=== PATIENT | female | born 1995 | race Caucasian/White ===

== ENCOUNTER → 2016-10-01 | Outpatient (CLI) | payer OTHER ==
[~2016-10-01] MED LIST: ASPI81TA85 PO; FIOR1CAP PO; PRENTAB55 PO; SING10TA32 PO
== END ==
LOC: M SMT 11:23
PROVIDERS: ATTEND Obstetrics & Gynecology
DX: Z34.82 Encounter for supervision of other normal pregnancy, second trimester (principal)

== ENCOUNTER → 2016-11-28 | Outpatient (CLI) | payer OTHER ==
[~2016-11-28] MED LIST changes: +COLA100C5 PO; +IBUP80TA PO; +OXYC1TAB23 PO
[2016-11-28 14:05] LABS: MEAN CORPUSCULAR HEMOGLOBIN 30.1 pg (27.0-33.0); MEAN CORPUSCULAR HGB CONC 33.8 g/dl (32.0-36.5); MEAN CORPUSCULAR VOLUME 88.9 fl (80.0-96.0); RED CELL DISTRIBUTION WIDTH 14.6 % (11.5-14.5); WHITE BLOOD COUNT 9.9 K/mm3 (4.0-10.0)
== END ==
LOC: M SMT 09:59
PROVIDERS: ATTEND Obstetrics & Gynecology
DX: Z34.82 Encounter for supervision of other normal pregnancy, second trimester (principal)

== ENCOUNTER 2016-12-08 13:09 | Outpatient (CLI) | payer OTHER ==
[2016-12-08 13:24] VITALS: BP 143/88
[2016-12-08 15:07] LABS: MEAN CORPUSCULAR HGB CONC 34.2 g/dl (32.0-36.5); MEAN CORPUSCULAR VOLUME 87.8 fl (80.0-96.0); WHITE BLOOD COUNT 12.4 K/mm3 (4.0-10.0)
[2016-12-08 15:22] LABS: ALBUMIN 2.8 GM/DL (3.2-5.2); ALBUMIN/GLOBULIN RATIO 0.76 (1.00-1.93); ALKALINE PHOSPHATASE 78 U/L (45-117); ALT/SGPT 12 U/L (12-78); ANION GAP 10 MEQ/L (8-16); AST/SGOT 9 U/L (15-37); BILIRUBIN,TOTAL 0.3 MG/DL (0.2-1.0); BLOOD UREA NITROGEN 8 MG/DL (7-18); CALCIUM LEVEL 8.7 MG/DL (8.5-10.1); CARBON DIOXIDE LEVEL 23 MEQ/L (21-32); CHLORIDE LEVEL 107 MEQ/L (98-107); CREATININE FOR GFR 0.61 MG/DL (0.55-1.02); GLOMERULAR FILTRATION RATE > 60.0 (>60); GLUCOSE, FASTING 83 MG/DL (70-105); POTASSIUM SERUM 3.6 MEQ/L (3.5-5.1); SODIUM LEVEL 140 MEQ/L (136-145); TOTAL PROTEIN 6.5 GM/DL (6.4-8.2); URIC ACID 6.3 MG/DL (2.6-6.0)
[2016-12-08] MEDS ORDERED: FIORICET TAB PO PRN (18:00)
[2017-02-02] MEDS ORDERED: ASPI81TA85 PO (07:44)
[2017-02-02] MEDS ORDERED: PRENTAB55 PO (07:44)
[2017-02-02] MEDS ORDERED: SING10TA32 PO (07:44)
[2017-02-02] MEDS ORDERED: FIOR1CAP PO (07:44)
== END 2016-12-08 22:08 | disposition home or self-care (01) ==
LOC: M LDO 13:09
PROVIDERS: ATTEND Obstetrics & Gynecology
DX: O99.89 Other specified diseases and conditions complicating pregnancy, childbirth and the puerperium (principal); Z3A.28 28 weeks gestation of pregnancy; R03.0 Elevated blood-pressure reading, without diagnosis of hypertension; R51 Headache; Z88.8 Allergy status to other drugs, medicaments and biological substances

== ENCOUNTER → 2016-12-18 | Outpatient (CLI) | payer OTHER ==
--- NOTE | 2016-12-18 17:18 | REP ---
OB ULTRASOUND: Real-time sonographic evaluation of the gravid uterus is performed. There is a single living intrauterine gestation. The estimated gestational age is reportedly 29 weeks 4 days, EDC 03/01/2017. Today's measurements indicate appropriate growth. BPD 75 mm = 29 weeks 6 days, 56th percentile HC 278 mm = 30 weeks 3 days, 62nd percentile AC 251 mm = 29 weeks 2 days, 45th percentile FL 57 mm = 29 weeks 5 days, 52nd percentile HC/AC ratio 1.1, within normal range. Estimated weight 1420 grams, 42nd percentile. Cervix closed and measures 3.3 cm in length. heart rate 158 beats per minute. Amniotic fluid within normal limits, WEN 18.6, within normal range of 9.1 to 23.3. S/D ratio 3.03, within normal range. RI 0.67, within normal range. SEEN/GROSSLY UNREMARKABLE Lateral ventricles yes Posterior fossa yes Upper lip yes Four-chamber heart no LVOT no RVOT no Stomach yes Cord insertion yes Three vessel cord yes Kidneys no Bladder yes Spine no position: Vertex. Placenta: Anterior and grade 1 with no previa or abruption. Cervix: Closed and measures 3.3 cm in length. Signed by Jarad Tucker MD 12/18/2016 05:45 P
== END ==
LOC: M RAD 11:55
PROVIDERS: ATTEND Obstetrics & Gynecology
DX: Z36 Encounter for antenatal screening of mother (principal)

== ENCOUNTER → 2016-12-25 | Outpatient (CLI) | payer OTHER ==
[2016-12-25 17:20] LABS: ALT/SGPT 16 U/L (12-78); AST/SGOT 14 U/L (15-37); BILIRUBIN,TOTAL 0.1 MG/DL (0.2-1.0); CREATININE FOR GFR 0.53 MG/DL (0.55-1.02); GLOMERULAR FILTRATION RATE > 60.0 (>60); URIC ACID 6.1 MG/DL (2.6-6.0)
[2016-12-25 18:04] LABS: MEAN CORPUSCULAR HEMOGLOBIN 29.1 pg (27.0-33.0); MEAN CORPUSCULAR HGB CONC 32.5 g/dl (32.0-36.5); MEAN CORPUSCULAR VOLUME 89.4 fl (80.0-96.0); RED CELL DISTRIBUTION WIDTH 14.8 % (11.5-14.5); WHITE BLOOD COUNT 11.3 10^3/uL (4.0-10.0)
== END ==
LOC: M SMT 12:06
PROVIDERS: ATTEND Obstetrics & Gynecology
DX: O13.3 Gestational [pregnancy-induced] hypertension without significant proteinuria, third trimester (principal)

== ENCOUNTER → 2016-12-25 | Outpatient (REF) | payer OTHER | LOC: M LAB REF 12:43 | PROVIDERS: ATTEND Obstetrics & Gynecology | DX: O13.3 Gestational [pregnancy-induced] hypertension without significant proteinuria, third trimester (principal) ==

== ENCOUNTER → 2017-01-08 | Outpatient (CLI) | payer OTHER ==
--- NOTE | 2017-01-09 09:11 | REP ---
Third trimester obstetric ultrasound for gestational hypertension without proteinuria: There is a single intrauterine gestation in a vertex presentation. There is movement and cardiac activity. The heart rate is 152 beats per minute. The placenta is anterior. There is no placenta previa or abruptio. The placenta is grade 1. The amniotic fluid volume subjectively is normal. The amniotic fluid index is 12.6 (8.4 - 24.4). The maternal adnexa and cul-de-sac are unremarkable. Based on the ultrasound today the gestational age is 32 weeks 2 days with an ROBERT of 03/03/2017. Gestational age by the first ultrasound 32 weeks 6 days with an ROBERT of 02/27/2017. By LMP 32 weeks 4 days with an ROBERT of 03/01/2017. weight is 1954 grams. (4 pounds, 5 ounces). This is the 40th percentile for 32 weeks 4 days. Umbilical artery Doppler assessment: SD ratio 3.08 (3.12 - 4.28) Resistive index 0.68 present 0.63 - 0.79). Diastolic flow velocity 13.1 cm/sec (normal greater than 10 cm/sec). anatomic survey: The following anatomic structures are identified and are unremarkable: Intracranial lateral ventricles, cerebellum, cisterna magna, facial profile, upper lip, choroid plexus, lungs, four-chamber heart, right cardiac ventricular outflow tract, diaphragm, stomach, cord insertion, three-vessel cord, kidneys, bladder, spine and upper lower extremities. Suboptimally demonstrated is the cardiac right ventricular outflow tract. Otherwise, there are no anomalies. Signed by Jarad Delgado MD 01/09/2017 09:02 A
== END ==
LOC: M RAD 12:44
PROVIDERS: ATTEND Obstetrics & Gynecology
DX: O13.3 Gestational [pregnancy-induced] hypertension without significant proteinuria, third trimester (principal); Z3A.32 32 weeks gestation of pregnancy

== ENCOUNTER → 2017-02-04 | Outpatient (REF) | payer OTHER | LOC: M LAB REF 17:05 | PROVIDERS: ATTEND Obstetrics & Gynecology | DX: O13.3 Gestational [pregnancy-induced] hypertension without significant proteinuria, third trimester (principal) ==

== ENCOUNTER 2017-02-09 05:11 | Inpatient (IN) | payer OTHER ==
[~2017-02-09] VITALS: Ht 167.6 cm; Wt 88.0 kg
[2017-02-09] VITALS (8 sets, daily range): BP systolic 110–140; BP diastolic 58–81
[~2017-02-09 05:11] MED LIST changes: -COLA100C5 PO; -IBUP80TA PO; -OXYC1TAB23 PO
[2017-02-09 06:25] LABS: MEAN CORPUSCULAR HEMOGLOBIN 28.8 pg (27.0-33.0); MEAN CORPUSCULAR HGB CONC 33.6 g/dl (32.0-36.5); MEAN CORPUSCULAR VOLUME 85.7 fl (80.0-96.0); PLATELET COUNT, AUTOMATED 248 10^3/uL (150-450); RED CELL DISTRIBUTION WIDTH 14.4 % (11.5-14.5); WHITE BLOOD COUNT 11.7 10^3/uL (4.0-10.0)
[2017-02-09] MEDS ORDERED: LR 1,000 ML IV SCH ×2 (06:30→09:30)
[2017-02-09] MEDS ORDERED: LR 1,000 ML IV ONE (06:30)
[2017-02-09] MEDS ORDERED: BICITRA 30ML SOLN UDC PO ONE (06:30)
[2017-02-09] MEDS ORDERED: OXYTOCIN INJ 10 UNITS/ML VIAL (J2590) As Ordered ONE (07:09)
[2017-02-09] MEDS ORDERED: MORPHINE PRES-FREE INJ 10 MG/10 ML VIAL (J2274) As Ordered ONE (07:12)
[2017-02-09 07:13] LABS: HBSAG L&D NEGATIVE (NEGATIVE)
[2017-02-09] MEDS ORDERED: METOCLOPRAMIDE INJ 10MG/2ML VIAL (J2765) IV PRN (07:50)
[2017-02-09] MEDS ORDERED: ONDANSETRON 4MG/2ML VIAL (J2405) IV PRN (07:50)
[2017-02-09] MEDS ORDERED: NALOXONE INJ 0.4 MG/1 ML VIAL (J2310) IV PRN ×2 (07:50)
[2017-02-09] MEDS ORDERED: METOCLOPRAMIDE INJ 10MG/2ML VIAL (J2765) As Ordered ONE (08:46)
[2017-02-09] MEDS ORDERED: ePHEDrine SULFATE 25 MG/5 ML(5MG/ML) SYRINGE As Ordered ONE (08:46)
[2017-02-09] MEDS ORDERED: PHENYLephrine HCL 500 MCG/5 ML (100MCG/ML) SYRINGE (J2370) As Ordered ONE (08:46)
[2017-02-09] MEDS ORDERED: KETOROLAC 60 MG/2 ML VIAL (J1885) As Ordered ONE (08:46)
[2017-02-09] MEDS: PRENATAL VITAMINS CHEWABLE TABLET PO SCH (09:00)
[2017-02-09] MEDS ORDERED: OXYTOCIN 30 UNITS IN 0.9% NaCl 500ML IV BAG (J2590) As Ordered ONE (09:12)
[2017-02-09] MEDS ORDERED: fentaNYL 100 MCG/2 ML INJECTION (J3010) IV PRN (09:30)
[2017-02-09] MEDS ORDERED: FIORICET TAB PO PRN (09:30)
[2017-02-09] MEDS ORDERED: PERCOCET 5MG/325MG TAB PO PRN ×2 (09:30→09:45)
[2017-02-09] MEDS ORDERED: PROMETHAZINE INJ 25 MG/ML VIAL (J2550) IV PRN (09:30)
[2017-02-09] MEDS ORDERED: OXYTOCIN DRIP 30 UNITS in APPROPRIATE DILUENT 1 EA IV SCH (09:40)
[2017-02-09] MEDS ORDERED: MEASLES,MUMPS,RUBELLA VACCINE INJ (MMR-II) (90707) SC SCH (09:45)
[2017-02-09] MEDS ORDERED: PROMETHAZINE 25 MG TAB PO PRN (09:45)
[2017-02-09] MEDS ORDERED: RHOGAM 300 MCG (1500 IU) INJ (J2790) IM SCH (09:45)
[2017-02-09] MEDS ORDERED: OXYC1TAB23 PO (11:08)
[2017-02-09] MEDS ORDERED: IBUP80TA PO (11:09)
[2017-02-09] MEDS ORDERED: COLA100C5 PO (11:10)
[2017-02-09] MEDS: MONTELUKAST 10 MG TAB PO SCH (12:40)
[2017-02-09] MEDS: KETOROLAC 30 MG/ML VIAL (J1885) IV SCH ×2 (16:43→22:51)
[2017-02-09] MEDS: LR 1,000 ML IV SCH ×2 (17:46→20:21)
[2017-02-09] MEDS: DOCUSATE SODIUM 100 MG CAP PO SCH (20:21)
[2017-02-09] MEDS: NALBUPHINE HCL 10 MG/ML AMP (J2300) IV PRN (20:21)
[2017-02-10] MEDS: LR 1,000 ML IV SCH ×4 (01:40→22:02)
[2017-02-10 02:00] VITALS: BP 118/63
[2017-02-10] MEDS: NALBUPHINE HCL 10 MG/ML AMP (J2300) IV PRN (02:23)
[2017-02-10] MEDS: KETOROLAC 30 MG/ML VIAL (J1885) IV SCH ×2 (04:09→09:16)
[2017-02-10 06:00] VITALS: BP 112/68
--- NOTE | 2017-02-10 06:44 | IPNPDOC ---
Text Note Date of Service The patient was seen on 02/10/17. NOTE Feels well. Adequate pain management. OOB independently. on demand. Voiding and passing flatus VSS, afebrile and normotensive CBC pending Fundus firm, NT Dressing dry and intact Lochia rubra scant without odor Legs negative A: PO #1 P: Routine care and precautions. Shower and remove dressing. Anticipate D/C in am VS,Fishbone, I+O VS, Fishbone, I+O Vital Signs Date Time Temp Pulse Resp B/P (MAP) Pulse Ox O2 Delivery O2 Flow Rate FiO2 02/10/17 06:00 97.1 84 18 112/68 (83) 100 Room Air Penelope Ward CNM Feb 10, 2017 06:44
[2017-02-10 07:10] LABS: MEAN CORPUSCULAR HEMOGLOBIN 28.9 pg (27.0-33.0); MEAN CORPUSCULAR HGB CONC 33.4 g/dl (32.0-36.5); MEAN CORPUSCULAR VOLUME 86.3 fl (80.0-96.0); PLATELET COUNT, AUTOMATED 221 10^3/uL (150-450); RED CELL DISTRIBUTION WIDTH 14.4 % (11.5-14.5); WHITE BLOOD COUNT 10.6 10^3/uL (4.0-10.0)
[2017-02-10] MEDS ORDERED: PRENATAL VITAMINS CHEWABLE TABLET PO SCH (09:00)
[2017-02-10] MEDS: PRENATAL VITAMINS CHEWABLE TABLET PO SCH (09:16)
[2017-02-10] MEDS: ASPIRIN 81 MG ENTERIC TAB PO SCH (09:16)
[2017-02-10] MEDS: DOCUSATE SODIUM 100 MG CAP PO SCH ×2 (09:16→20:16)
[2017-02-10] MEDS: MONTELUKAST 10 MG TAB PO SCH (09:16)
[2017-02-10] MEDS: IBUPROFEN 800 MG TAB PO SCH (17:13)
[2017-02-10 18:00] VITALS: BP 134/61
[2017-02-10] MEDS: PERCOCET 5MG/325MG TAB PO PRN (20:17)
[2017-02-11] MEDS: IBUPROFEN 800 MG TAB PO SCH ×2 (02:20→09:14)
[2017-02-11 05:47] VITALS: BP 121/83
[2017-02-11] MEDS ORDERED: OXYC1TAB23 PO (08:25)
[2017-02-11] MEDS: PRENATAL VITAMINS CHEWABLE TABLET PO SCH (09:12)
[2017-02-11] MEDS: ASPIRIN 81 MG ENTERIC TAB PO SCH (09:12)
[2017-02-11] MEDS: DOCUSATE SODIUM 100 MG CAP PO SCH (09:12)
[2017-02-11] MEDS: MONTELUKAST 10 MG TAB PO SCH (09:13)
[2017-02-11] MEDS: PERCOCET 5MG/325MG TAB PO PRN (09:15)
== END 2017-02-11 10:20 | disposition home or self-care (01) | DRG 766 ==
LOC: M LDI 05:11 → M OBS 10:28
PROVIDERS: ADMIT Obstetrics & Gynecology; ATTEND Obstetrics & Gynecology
PROC: 0UB70ZZ Excision of Bilateral Fallopian Tubes, Open Approach (ICD-10-PCS; 2017-02-09)
PROC: 10D00Z1 Extraction of Products of Conception, Low, Open Approach (ICD-10-PCS; principal; 2017-02-09 07:30)
DX: O13.4 Gestational [pregnancy-induced] hypertension without significant proteinuria, complicating childbirth (principal); Z37.0 Single live birth; Z3A.37 37 weeks gestation of pregnancy; O34.211 Maternal care for low transverse scar from previous cesarean delivery; Z30.2 Encounter for sterilization

== ENCOUNTER 2018-12-03 19:02 | Emergency (ER) | payer OTHER ==
[~2018-12-03] VITALS: Ht 167.6 cm; Wt 82.9 kg
[~2018-12-03 19:02] MED LIST changes: +COLA100C5 PO; +IBUP80TA PO; +OXYC1TAB23 PO
[2018-12-03] MEDS ORDERED: MECLIZINE 25 MG TABLET PO ONE (20:15)
[2018-12-03] MEDS ORDERED: PROMETHAZINE INJ 25 MG/ML VIAL (J2550) IV ONE (20:15)
[2018-12-03] MEDS ORDERED: KETOROLAC 30 MG/ML VIAL (J1885) IV ONE (20:15)
[2018-12-03] MEDS ORDERED: NS 1,000 ML IV ONE (20:15)
[2018-12-03 20:20] LABS: BASO % 0.2 % (0.0-1.0); EOS % 0.2 % (0.0-3.0); LYMPH # 1.5 10^3/uL (1.5-5.0); LYMPH % 11.4 % (24.0-44.0); MEAN CORPUSCULAR HEMOGLOBIN 29.2 pg (27.0-33.0); MEAN CORPUSCULAR HGB CONC 32.6 g/dl (32.0-36.5); MEAN CORPUSCULAR VOLUME 89.6 fl (80.0-96.0); MONO # 0.5 10^3/uL (0.0-0.8); NEUTROPHILS # 11.3 10^3/uL (1.5-8.5); NEUTROPHILS % 83.7 % (36.0-66.0); PLATELET COUNT, AUTOMATED 244 10^3/uL (150-450); WHITE BLOOD COUNT 13.5 10^3/uL (4.0-10.0)
--- NOTE | 2018-12-03 20:43 | REPVR ---
EXAM: CT Head Without Contrast EXAM DATE/TIME: 12/03/2018 8:19 PM CLINICAL HISTORY: 23 years old, female; Dizziness; Additional info: Dizzy/headache TECHNIQUE: Imaging protocol: Computed tomography of the head without contrast. Radiation optimization: All CT scans at this facility use at least one of these dose optimization techniques: automated exposure control; mA and/or kV adjustment per patient size (includes targeted exams where dose is matched to clinical indication); or iterative reconstruction. COMPARISON: No relevant prior studies available. FINDINGS: Brain: Normal. No hemorrhage. Unremarkable white matter. No mass effect. Ventricles: Normal. No ventriculomegaly. Bones/joints: Unremarkable. No acute fracture. Sinuses: Visualized sinuses are unremarkable. No fluid levels. Mastoid air cells: Visualized mastoid air cells are well aerated. Soft tissues: Unremarkable. IMPRESSION: No acute intracranial abnormality. Electronically signed by: Santy Khan On 12/03/2018 20:42:31 PM
[2018-12-03 20:45] LABS: BLOOD UREA NITROGEN 11 MG/DL (7-18); C REACTIVE PROTEIN QUANTITATIV 0.38 MG/DL (0.00-0.30); CALCIUM LEVEL 9.3 MG/DL (8.5-10.1); CARBON DIOXIDE LEVEL 29 MEQ/L (21-32); CHLORIDE LEVEL 107 MEQ/L (98-107); CREATININE FOR GFR 0.71 MG/DL (0.55-1.30); FREE T4 1.01 NG/DL (0.76-1.46); GLOMERULAR FILTRATION RATE > 60.0 (>60); GLUCOSE, FASTING 117 MG/DL (70-100); MAGNESIUM LEVEL 1.9 MG/DL (1.8-2.4); SODIUM LEVEL 140 MEQ/L (136-145); THYROID STIMULATING HORMONE 0.746 uIU/ML (0.358-3.740)
[2018-12-03 20:47] LABS: ERYTHROCYTE SEDIMENTATION RATE 28 mm/hr (0-20)
[2018-12-03] MEDS ORDERED: NS 500 ML IV ONE (23:00)
[2018-12-04] MEDS ORDERED: KETO10TAB PO (00:32)
[2018-12-04] MEDS ORDERED: MECL1TAB31 PO (00:32)
[2018-12-04] MEDS ORDERED: PROM50TA4 PO (00:32)
[2018-12-04 00:46] VITALS: BP 137/86
== END 2018-12-04 00:48 | disposition home or self-care (01) ==
LOC: M ED 19:02
DX: R42 Dizziness and giddiness (principal); E86.9 Volume depletion, unspecified; Z88.8 Allergy status to other drugs, medicaments and biological substances
CPT/HCPCS: 70450; 80048; 81001; 83735; 84439; 84443; 84702; 85025; 85652; 86140; 96361; 96374; 96375; 99284; J1885

== ENCOUNTER → 2019-10-02 | Outpatient (REF) | payer OTHER ==
[~2019-10-02] MED LIST changes: -ASPI81TA85 PO; +ASPI81TA86 PO; +KETO10TAB PO; +MECL1TAB31 PO; +PROM50TA4 PO
[2019-10-02 18:58] LABS: CHLAMYDIA DNA AMPLIFICATION POSITIVE (NEGATIVE); GC DNA AMPLIFICATION NEGATIVE (NEGATIVE)
== END ==
LOC: M SFHCLERA 12:04
PROVIDERS: ATTEND Nurse Practitioner Family
DX: Z11.3 Encounter for screening for infections with a predominantly sexual mode of transmission (principal)